=== PATIENT | male | born 1965 | race Caucasian/White ===

== ENCOUNTER 2016-09-04 10:56 | Emergency (ER) | payer OTHER ==
[2016-09-04 13:44] VITALS: RESP 16; TEMP 99
--- NOTE | 2016-09-04 13:57 | UCPHY ---
H & P Patient Type: New Chief Complaint Nursing Narrative: c/o cough/congestion/ Flu like s/s x 1 wk Time Seen by Provider: 09/04/16 12:13 HPI/ROS: CHIEF COMPLAINT: Cough and fever History by patient HISTORY OF PRESENT ILLNESS: 51-year-old man who is status post liver transplant for cholangiocarcinoma presents complaining of 1 week of upper respiratory symptoms including a dry, nonproductive cough. It began with some myalgias which has subsequently resolved. Three days ago the patient had a fever to as high as 101.5 at home. There has been no nausea, vomiting or diarrhea. He denies any sore throat. He denies any shortness of breath or chest pain. He does have some hoarseness. He has had a runny nose. He does not smoke. He has been trying DayQuil and NyQuil with minimal relief. REVIEW OF SYSTEMS: As in HPI, and all other systems reviewed and are negative Source: Patient, Family - Personal History Current Tetanus Diphtheria and Acellular Pertussis (TDAP): Yes - Medical/Surgical History Hx Asthma: No Hx Chronic Respiratory Disease: No Hx Diabetes: No Hx Cardiac Disease: No Hx Renal Disease: No Hx Cirrhosis: No Hx Alcoholism: No Hx HIV/AIDS: No Hx Splenectomy or Spleen Trauma: No Other PMH: LIVER TRANSPLANT 2011 FOR [place]. LT HIP RESURFACING. SEASONAL ALLERGIES - Family History Significant Family History: No pertinent family hx - Social History Smoking Status: Never smoked - Physical Exam Exam: General Appearance: Alert, nontoxic-appearing. Eyes: Pupils equal and round no pallor or injection. ENT, Mouth: Mucous membranes moist. Respiratory: Normal, effort, There are no retractions, lungs bilateral rhonchi , left greater than right Cardiovascular: Regular rate and rhythm. Gastrointestinal: Abdomen is soft and nontender, no masses, bowel sounds normal. Neurological: Awake, alert and oriented x 3, no pronator drift, normal gait, no pronator drift Skin: Warm and dry, no rashes. Musculoskeletal: Neck is supple nontender. Extremities are symmetrical, full range of motion. Psychiatric: Patient has normal affect, there is no agitation. Constitutional: Initial Vital Signs Temperature (C) 37.2 C 09/04/16 11:03 Heart Rate 85 09/04/16 11:03 Respiratory Rate 18 09/04/16 11:03 Blood Pressure 135/102 H 09/04/16 11:03 O2 Sat (%) 95 09/04/16 11:03 O2 Delivery Mode Room Air Allergies/Adverse Reactions: ibuprofen [From Motrin] Allergy (Severe, Verified 07/17/14 07:29) Anaphylaxis vancomycin Allergy (Mild, Verified 07/17/14 07:29) Red Man Syndrome Home Medications: Medication Instructions Recorded Cetirizine [ZyrTEC 10 mg (*)] 10 mg PO DAILY PRN 10/17/11 Cholecalciferol (Vitamin D3) 5,000 unit PO DAILY 10/31/13 [Vitamin D3] Everolimus [Zortress] 0.75 mg PO BID 10/31/13 Tacrolimus [Hecoria] 0.5 mg PO BID 10/31/13 lamoTRIgine [Lamictal] 200 mg PO DAILY 10/31/13 Acetaminophen [Tylenol 325mg (*)] 325 - 650 mg PO Q4 PRN #0 tab 11/20/13 AZITHROMYCIN [Z-PACK] 250 mg PO DAILY #6 tab 09/04/16 Albuterol [Proventil Inhaler HFA 1 - 2 puffs IH Q4H #1 mdi 09/04/16 (*)] Medical Decision Making - Diagnostics Imaging: Imaging Impressions Chest X-Ray 09/04/16 12:58 Impression: Mild perihilar bronchitis without convincing evidence of a focal infiltrate. ED Course/Re-evaluation: 51-year-old man with history of liver transplant on immunosuppressants presents with cough and upper respiratory symptoms for 1 week and fever 2 days ago. Patient is well-appearing in no evidence of hypoxia or significant systemic toxicity. Chest x-ray showed no evidence of pneumonia. Given the patient's exam and cough I suspect he has an element of bronchitis. I think his cough will benefit from albuterol inhaler and this is been prescribed. We discussed the need for antibiotics versus this being caused by a viral infection. Because of his underlying immunosuppressant I felt little judicious antibiotics might be appropriate however they are not clearly indicated. After discussion with the patient we agreed that he would get a prescription for Z-Lex, he will discuss it with his brick and blocker aid labor and or start the antibiotics if he gets recurrent fever. We also discussed return precautions including but not limited to increased fever, trouble breathing, or new symptoms such as nausea vomiting or worsening fatigue. Patient understands and is agreeable to this plan. - Data Points Laboratory Results: 09/04/16 11:10 Influenza Typ A,B (DFA) NEGATIVE FOR FLU (NEGATIVE) Departure - Departure Disposition: Home, Routine, Self-Care Clinical Impression: Bronchitis Condition: Good Instructions: Acute Bronchitis (ED) Additional Instructions: You were seen by Dr. Sarah Gandhi today. Return for any worsening or new concerns. Please follow-up with your brick and blocker aid labor. Use the albuterol inhaler as needed for cough. Try also hot drinks with honey. Fill the prescription for Z-Lex if your fever persists or if your brick and blocker aid labor thinks it is advisable to take it. Return immediately if you have difficulty breathing, persistent fever, vomiting or other significant worsening or new symptoms. Referrals: BRANHAM,BEAU [Other] - As per Instructions Prescriptions: Albuterol [Proventil Inhaler HFA (*)] 1 - 2 puffs IH Q4H #1 mdi AZITHROMYCIN [Z-PACK] 250 mg PO DAILY #6 tab - PQRS PQRS Measurement: NA
[2016-09-04 14:14] VITALS: BP 133/90; PULSE 82; O2SAT 93
== END 2016-09-04 14:10 | disposition home or self-care (01) ==
LOC: CED 10:56
DX: J40 Bronchitis, not specified as acute or chronic (principal); Z92.25 Personal history of immunosuppression therapy; Z94.4 Liver transplant status; Z85.09 Personal history of malignant neoplasm of other digestive organs
CPT/HCPCS: 71020-PO; 87400-PO; 99204-PO; G0463-PO